=== PATIENT | female | born 1995 | race Caucasian/White ===

== ENCOUNTER 2018-07-05 14:35 | Emergency (ER) | payer MEDICAID ==
[2018-07-05] MEDS: LIDOCAINE 1% (MDV) 20 ML INJ SC (15:11)
== END 2018-07-05 15:52 | disposition home or self-care (01) ==
LOC: FTE 14:35
DX: L60.0 Ingrowing nail (principal); R40.2412 Glasgow coma scale score 13-15, at arrival to emergency department
CPT/HCPCS: 11765; 99283-25